=== PATIENT | female | born 1980 | race Caucasian/White ===

== ENCOUNTER 2016-10-16 16:55 | Emergency (ER) | payer BC ==
[~2016-10-16] VITALS: Ht 162.6 cm; Wt 99.8 kg
[2016-10-16] MEDS ORDERED: IV NORMAL SALINE 1000ML BAG 1,000 ML IV ONE ×2 (17:45→19:45)
[2016-10-16 17:52] LABS: BASO # 0.1 x10^3/uL (0.0-0.2); BASO % 1 % (0-3); EOS % 1 % (0-3); HEMATOCRIT 44.2 % (36.0-47.0); LYMPH % 10 % (24-48); MEAN CORPUSCULAR HEMOGLOBIN 30 pg (25-35); MEAN CORPUSCULAR HGB CONC 34 g/dL (31-37); MEAN CORPUSCULAR VOLUME 90 fL (79-100); MONO % 7 % (0-9); NEUT % 82 % (31-73); PLATELET COUNT 335 x10^3/uL (140-400); RED BLOOD COUNT 4.93 x10^6/uL (3.50-5.40); WHITE BLOOD COUNT 20.5 x10^3/uL (4.0-11.0)
[2016-10-16 18:09] LABS: CALCIUM 9.6 mg/dL (8.5-10.1); GFR 63.1; POTASSIUM 3.1 mmol/L (3.5-5.1)
--- NOTE | 2016-10-16 18:10 | PHYS DOC ---
Past Medical History Past Medical History: No Pertinent History Past Surgical History: Alcohol Use: None Drug Use: None Adult General Chief Complaint Chief Complaint: DIZZY/LIGHT HEADED HPI HPI Patient is a 36 year old female who presents today complaining of dizziness intermittently since this morning. Patient denies anything exacerbating or making the dizziness better. Patient denies any history of vertigo. Patient is also complaining of 2 episodes of vomiting prior to coming to the ED. She states she believes she had a syncope episode at 1500 but is not sure. Patient states she felt dizzy then she could not move. Patient states she thought she passed out. Patient stated this event was unwitnessed. Patient states she does not have any medical history but was seen by her PCP 1 month ago for bilateral lower extremity edema and was put on hydrochlorothiazide. Patient denies any chest pain or shortness of breath. Denies any chance she is . Denies any abdominal pain. Denies any history of alcohol or drug abuse. She states she smokes once in a while. She is also complaining of bilateral lower extremity swelling and visible veins on the right viveros. She states the lower extremity swelling has been going on for 1 month and hence the reason her PCP put her on HCTZ. Denies any chest pain or shortness of breath. Denies any recent hospitalization. Denies any long car rides or air travel in the last 2 weeks. Review of Systems Review of Systems Constitutional: Denies fever or chills [] Eyes: Denies change in visual acuity, redness, or eye pain [] HENT: Denies nasal congestion or sore throat [] Respiratory: Denies cough or shortness of breath [] Cardiovascular: No additional information not addressed in HPI [] GI: Nausea and vomiting : Denies dysuria or hematuria [] Musculoskeletal: Lower extremity swelling Integument: Denies rash or skin lesions [] Neurologic: Dizziness Endocrine: Denies polyuria or polydipsia [] Current Medications Current Medications Current Medications Medications (Trade) Dose Ordered Sig/Cl Start Time Stop Time Status Last Admin Dose Admin Diazepam (Valium) 5 mg 1X ONCE 10/16/16 18:15 10/16/16 18:16 DC 10/16/16 18:17 5 MG Info (Do NOT chart on this entry -- for MONITORING) 1 each PRN DAILY PRN 10/16/16 18:45 10/18/16 18:44 Iohexol (Omnipaque 300 Mg/ml) 75 ml 1X ONCE 10/16/16 18:45 10/16/16 18:46 DC 10/16/16 19:02 75 ML Ketorolac Tromethamine (Toradol) 30 mg 1X ONCE 10/16/16 21:30 10/16/16 21:31 DC 10/16/16 21:25 30 MG Meclizine HCl (Antivert) 25 mg 1X ONCE 10/16/16 18:15 10/16/16 18:16 DC 10/16/16 18:17 25 MG Ondansetron HCl (Zofran) 4 mg 1X ONCE 10/16/16 18:15 10/16/16 18:16 DC 10/16/16 18:17 4 MG Potassium Chloride (KCl Oral Soln) 40 meq 1X ONCE 10/16/16 19:30 10/16/16 19:31 DC 10/16/16 19:32 40 MEQ Sodium Chloride 1,000 ml @ 1,000 mls/hr 1X ONCE 10/16/16 19:45 10/16/16 20:44 DC 10/16/16 19:47 1,000 MLS/HR Allergies Allergies Allergies Coded Allergies Type Severity Reaction Last Updated Verified No Known Drug Allergies 10/16/16 No Physical Exam Physical Exam Constitutional: Well developed, well nourished, no acute distress, non-toxic appearance. [] HENT: Normocephalic, atraumatic, bilateral external ears normal, oropharynx moist, no oral exudates, nose normal. [] Eyes: PERRLA, EOMI, conjunctiva normal, no discharge. [] Neck: Normal range of motion, no tenderness, supple, no stridor. [] Cardiovascular:Heart rate regular rhythm, no murmur [] Lungs & Thorax: Bilateral breath sounds clear to auscultation [] Abdomen: Bowel sounds normal, soft, no tenderness, no masses, no pulsatile masses. [] Skin: Warm, dry, no erythema, no rash. [] Back: No tenderness, no CVA tenderness. [] Extremities: No tenderness, no cyanosis, no clubbing, ROM intact, +2 bilateral pedal edema. Negative bilateral Homans sign. Superficial varicose veins noted on the right viveros. Neurologic: Alert and oriented X 3, normal motor function, normal sensory function, no focal deficits noted. Cranial nerves II through XII intact Psychologic: Affect normal, judgement normal, mood normal. [] Current Patient Data Vital Signs Vital Signs Date Time Temp Pulse Resp B/P (MAP) Pulse Ox O2 Delivery O2 Flow Rate FiO2 10/16/16 21:19 116 130/63 (85) 95 Room Air 10/16/16 17:25 99.2 16 99.2 Lab Values Laboratory Tests Test 10/16/16 16:37 10/16/16 17:30 10/16/16 17:40 POC Urine HCG, Qualitative Hcg negative (Negative) Urine Collection Type Unknown Urine Color Yellow Urine Clarity Clear Urine pH 7.5 Urine Specific [place] 1.020 Urine Protein Negative mg/dL (NEG-TRACE) Urine Glucose (UA) Negative mg/dL (NEG) Urine Ketones (Stick) Negative mg/dL (NEG) Urine Blood Negative (NEG) Urine Nitrite Negative (NEG) Urine Bilirubin Negative (NEG) Urine Urobilinogen Dipstick 0.2 mg/dL (0.2 mg/dL) Urine Leukocyte Esterase Negative (NEG) Urine RBC 1-2 /HPF (0-2) Urine WBC 0 /HPF (0-4) Urine Squamous Epithelial Cells Few /LPF Urine Bacteria Few /HPF (0-FEW) Urine Mucus Slight /LPF Urine Opiates Screen Neg (NEG) Urine Methadone Screen Neg (NEG) Urine Barbiturates Neg (NEG) Urine Phencyclidine Screen Neg (NEG) Urine Amphetamine/Methamphetamine Neg (NEG) Urine Benzodiazepines Screen Neg (NEG) Urine Cocaine Screen Neg (NEG) Urine Cannabinoids Screen Neg (NEG) Urine Ethyl Alcohol Neg (NEG) White Blood Count 20.5 x10^3/uL (4.0-11.0) H Red Blood Count 4.93 x10^6/uL (3.50-5.40) Hemoglobin 15.0 g/dL (12.0-15.5) Hematocrit 44.2 % (36.0-47.0) Mean Corpuscular Volume 90 fL (79-100) Mean Corpuscular Hemoglobin 30 pg (25-35) Mean Corpuscular Hemoglobin Concent 34 g/dL (31-37) Red Cell Distribution Width 13.0 % (11.5-14.5) Platelet Count 335 x10^3/uL (140-400) Neutrophils (%) (Auto) 82 % (31-73) H Lymphocytes (%) (Auto) 10 % (24-48) L Monocytes (%) (Auto) 7 % (0-9) Eosinophils (%) (Auto) 1 % (0-3) Basophils (%) (Auto) 1 % (0-3) Neutrophils # (Auto) 16.8 x10^3uL (1.8-7.7) H Lymphocytes # (Auto) 2.0 x10^3/uL (1.0-4.8) Monocytes # (Auto) 1.5 x10^3/uL (0.0-1.1) H Eosinophils # (Auto) 0.1 x10^3/uL (0.0-0.7) Basophils # (Auto) 0.1 x10^3/uL (0.0-0.2) Segmented Neutrophils % 76 % (35-66) H Band Neutrophils % 5 % (0-9) Lymphocytes % 10 % (24-48) L Monocytes % 9 % (0-10) Platelet Estimate Adequate (ADEQUATE) Prothrombin Time 12.3 SEC (11.7-14.0) Prothrombin Time INR 1.0 (0.8-1.1) Sodium Level 142 mmol/L (136-145) Potassium Level 3.1 mmol/L (3.5-5.1) L Chloride Level 102 mmol/L (98-107) Carbon Dioxide Level 32 mmol/L (21-32) Anion Gap 8 (6-14) Blood Urea Nitrogen 13 mg/dL (7-20) Creatinine 1.0 mg/dL (0.6-1.0) Estimated GFR (Cockcroft-Gault) 63.1 BUN/Creatinine Ratio 13 (6-20) Glucose Level 98 mg/dL (70-99) Calcium Level 9.6 mg/dL (8.5-10.1) Magnesium Level 1.9 mg/dL (1.8-2.4) Total Bilirubin 0.4 mg/dL (0.2-1.0) Aspartate Amino Transferase (AST) 17 U/L (15-37) Alanine Aminotransferase (ALT) 28 U/L (14-59) Alkaline Phosphatase 61 U/L (46-116) Creatine Kinase 76 U/L (26-192) Creatine Kinase MB (Mass) < 0.5 ng/mL (0.0-3.6) Creatine Kinase MB Relative Index 0.7 % (0-4) Troponin I Quantitative < 0.017 ng/mL (0.000-0.055) FR-Bpz-W-Type Natriuretic Peptide 28 pg/mL (0-124) Total Protein 7.9 g/dL (6.4-8.2) Albumin 3.9 g/dL (3.4-5.0) Albumin/Globulin Ratio 1.0 (1.0-1.7) Lipase 104 U/L (73-393) Thyroid Stimulating Hormone (TSH) 1.352 uIU/mL (0.358-3.74) Ethyl Alcohol Level < 10 mg/dL (0-10) Laboratory Tests 10/16/16 17:40 Laboratory Tests 10/16/16 17:40 EKG EKG [] Radiology/Procedures Radiology/Procedures [] Course & Med Decision Making Course & Med Decision Making Pertinent Labs and Imaging studies reviewed. (See chart for details) Patient is in the ED with multiple complaints including dizziness, since this morning nausea and vomiting prior to arrival to the ED. She is also complaining of bilateral lower extremity swelling for the last 1 month. She was put on HCTZ by the PCP for this. EKG interpreted by Dr. Shoemaker sinus tachycardia heart rate 106 QRS interval 82 normal axis. Negative urine hCG, urine analysis is negative for infection. Negative drug screen. CBC with a WBC of 20.5, CMP with potassium of 3.1, patient was given oral potassium replacement in the ED. CT of the abdomen and pelvic was obtained which was negative for any acute findings. Patient was given 2 L of IV fluid in the ED Zofran and Valium in the ED. She is feeling better. She'll be discharged with meclizine, and Zofran. She has a PCP, recommended she follows up on Tuesday. She was also provided neurologist for follow-up. Dragon Disclaimer Dragon Disclaimer This electronic medical record was generated, in whole or in part, using a voice recognition dictation system. Departure Departure Impression: Primary Impression: Dizziness Additional Impressions: Nausea & vomiting Varicose veins of both legs with edema Hypokalemia Disposition: HOME, SELF-CARE Condition: STABLE Referrals: ANATOLY GARCIA MD follow up in one week Patient Instructions: Dizziness, [id number]-[id number], Hypokalemia-Brief, Nausea and Vomiting Additional Instructions: You were seen in the ED with dizziness, nausea, vomiting, and lower extremity pain suspicious of sciatica. You were noted to have some varicose veins to the right lower extremity and swelling to both lower extremities. Try and elevate your bilateral lower extremities. You can wear CHEPE hose. Take the prescribed medicines as ordered. Push fluids. Change positions slowly. Your potassium was low, increase your dietary potassium intake through foods like bananas. Follow- up with your doctor or the provided neurologist as soon as possible. Scripts Meclizine Hcl (MECLIZINE HCL) 25 Mg Tablet 1 TAB PO TID Y for DIZZINESS, #30 TAB Prov: CHAU SOARES APRN 10/16/16 Ondansetron (ZOFRAN ODT) 4 Mg Tab.rapdis 1 TAB SL Q8HRS, #15 TAB Prov: CHAU SOARES APRN 10/16/16 Problem Qualifiers Additional Impressions: Nausea & vomiting Vomiting type: unspecified Vomiting Intractability: non-intractable Qualified Codes: R11.2 - Nausea with vomiting, unspecified CHAU SOARES APRN Oct 16, 2016 18:10
[2016-10-16] MEDS ORDERED: MECLIZINE HCL 12.5 MG TABLET. PO ONE (18:15)
[2016-10-16] MEDS ORDERED: ONDANSETRON PF 4 MG/2 ML VIAL. IV ONE (18:15)
[2016-10-16 18:16] LABS: ALBUMIN 3.9 g/dL (3.4-5.0); MAGNESIUM 1.9 mg/dL (1.8-2.4); TOTAL BILIRUBIN 0.4 mg/dL (0.2-1.0); TOTAL PROTEIN 7.9 g/dL (6.4-8.2)
--- NOTE | 2016-10-16 18:21 | RAD ---
CT Head W/O Contrast: History: DIZZY, PASSED OUT, NO PRIORS Comparison: none Axial images were obtained without contrast. The awllace and white matter appears normal and symmetrical for the patients age. There is no mass effect, extraaxial fluid collections or hydrocephalus. There is no gross bleed. There is no focal loss of wallace-white matter distinction to suggest acute ischemia, i.e. stroke. Impression: No acute findings. RS Compliance Statement: One or more of the following individualized dose reduction techniques were utilized for this examination: 1. Automated exposure control 2. Adjustment of the mA and/or kV according to patient size 3. Use of iterative reconstruction technique Electronically signed by: Rd Ramirez III, MD (10/16/2016 6:18 PM) [facility]
[2016-10-16 18:22] LABS: CKMB MASS < 0.5 ng/mL (0.0-3.6); CREATINE KINASE 76 U/L (26-192); PROTHROMBIN TIME PATIENT 12.3 SEC (11.7-14.0)
[2016-10-16 18:34] LABS: BILIRUBIN,URINE NEGATIVE (NEG); GLUCOSE,URINE NEGATIVE (NEG); NITRITE,URINE NEGATIVE (NEG); PH,URINE 7.5; PROTEIN,URINE NEGATIVE (NEG-TRACE); UROBILINOGEN,URINE 0.2 mg/dL (0.2 mg/dL)
[2016-10-16 18:39] LABS: BARBITURATES NEG (NEG); BENZODIAZEPINES NEG (NEG); CANNABINOIDS NEG (NEG); COCAINE NEG (NEG); METHADONE NEG (NEG); OPIATES NEG (NEG); PHENCYCLIDINE NEG (NEG)
[2016-10-16 18:41] LABS: BACTERIA,URINE FEW /HPF (0-FEW); WBC,URINE 0 /HPF (0-4)
[2016-10-16 18:42] LABS: SQUAMOUS EPITHELIAL CELL,UR FEW /LPF
[2016-10-16 18:44] LABS: PLT ESTIMATE ADEQUATE (ADEQUATE)
[2016-10-16] MEDS ORDERED: IOHEXOL 300 MG/ML 75 ML VIAL IV ONE (18:45)
[2016-10-16] MEDS ORDERED: CONTRAST GIVEN MC PRN (18:45)
--- NOTE | 2016-10-16 19:23 | RAD ---
CT abdomen and pelvis with contrast Indication: Nausea and vomiting.. . Technique: Intravenous contrast given. No oral contrast per request. Comparison:None available Exposure: One or more of the following individualized dose reduction techniques were utilized for this examination: 1. Automated exposure control 2. Adjustment of the mA and/or kV according to patient size 3. Use of iterative reconstruction technique. FINDINGS: Lower thorax: Lung bases are clear. Pneumoperitoneum:No gross pneumoperitoneum. Liver: Unremarkable Spleen: Unremarkable Pancreas: Unremarkable Adrenals:No evidence of mass. Kidneys:Unremarkable Gallbladder: No calcified stone Aorta: Abdominal aorta is nonaneurysmal Lymph nodes: No significant enlargement GI tract: No bowel obstruction. No paracolonic inflammation. Appendix:Visualized, appears within normal limits. Ascites: No gross ascites. Urinary bladder: Not opacified, but no apparent abnormality. No evidence of pelvic mass, Bones: No destructive process. IMPRESSION: No acute findings in the abdomen or pelvis. Electronically signed by: Torsten Andrews MD (10/16/2016 7:20 PM) [id number]
[2016-10-16] MEDS ORDERED: POTASSIUM CHLORIDE 20 MEQ/15 ML ORAL LIQUID. PO ONE (19:30)
[2016-10-16] MEDS ORDERED: ONDA4TAB10 SL (19:53)
[2016-10-16] MEDS ORDERED: MECL25TA3 PO (19:53)
[2016-10-16 21:19] VITALS: BP 130/63
[2016-10-16] MEDS ORDERED: KETOROLAC TROMETHAMINE 30 MG/ML INJ. IV ONE (21:30)
--- NOTE | 2016-10-16 21:35 | RAD ---
Right Lower Extremity Venous Doppler Ultrasound History: pain Comparison: None Procedure: Color flow, duplex, spectral analysis and 2D images are obtained with and without compression in the area of the common femoral vein, superficial femoral vein - femoral vein junction, main femoral vein (superficial femoral vein) and popliteal vein. Veins of the proximal calf are also imaged. Findings: There is normal duplex flow, color flow and compressibility of all visualized vein segments. No evidence of deep venous thrombus is present. Impression: No evidence of DVT. Electronically signed by: Rd Ramirez III, MD (10/16/2016 9:32 PM) [facility]
--- NOTE | 2016-10-16 21:52 | EKG ---
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
--- NOTE | 2016-10-17 09:44 | RAD ---
Indication dizziness. Syncopal episode. Protocol study. A single view of the chest was obtained. No prior imaging of the chest is available. The heart, pulmonary vessels and mediastinum the lungs are clear. There is no pleural fluid or pneumothorax. Bony structures appear grossly intact. IMPRESSION: No acute or significant finding in the chest
== END 2016-10-16 22:05 | disposition home or self-care (01) ==
LOC: EDSEX 16:55 → ER 16:55
DX: R42 Dizziness and giddiness (principal); R11.2 Nausea with vomiting, unspecified; E87.6 Hypokalemia; I83.893 Varicose veins of bilateral lower extremities with other complications
CPT/HCPCS: 36415; 70450; 71010; 74177; 80053; 81001; 81025; 82553; 83690; 83735; 83880; 84443; 84484; 85007; 85027; 85610; 93005; 93971; 96361; 96374; 96375; 99285; G0480; G0481; J1885; J2405; J3360; J7030; J8597; Q9967